=== PATIENT | male | born 1985 | race Two or more races ===

== ENCOUNTER 2018-12-06 00:46 | Emergency (ER) | payer SELFPAY ==
[~2018-12-06] VITALS: Ht 188 cm; Wt 98.4 kg
[2018-12-06] MEDS ORDERED: IBUPROFEN 800 MG TABLET PO ONE (01:00)
[2018-12-06] MEDS ORDERED: IBUPROFEN 800 MG TABLET ONE (01:09)
--- NOTE | 2018-12-06 01:09 | NUR ---
Pt. ambulated into ED accompanied by male orthodontic laboratory technician w/ c/o L foot pain d/t soccer injury that occurred 7 days ago, CMS intact, pt. not wearing shoes, A/Ox4, RR even and unlabored, speaks in clear and complete sentences,
--- NOTE | 2018-12-06 01:10 | NUR ---
Xray at bedside.
--- NOTE | 2018-12-06 01:10 | NUR ---
Rad. tech. called for xray,
--- NOTE | 2018-12-06 01:54 | NUR ---
Patient discharged to home in stable conditon. Written and verbal after care instructions given. Patient verbalizes understanding of instructions. Pt out of ER with crutches, gait training provided, no falls noted, VSS, no acute signs of distress, all belongings taken.
[2018-12-06 01:56] VITALS: BP 119/86
== END 2018-12-06 01:56 | disposition home or self-care (01) ==
LOC: ER 00:58
DX: S92.902A Unspecified fracture of left foot, initial encounter for closed fracture (principal); X50.0XXA Overexertion from strenuous movement or load, initial encounter; Y93.89 Activity, other specified; Y92.89 Other specified places as the place of occurrence of the external cause; Y99.8 Other external cause status
CPT/HCPCS: 73630; A4663

== ENCOUNTER 2023-06-26 04:14 | Emergency (ER) | payer SELFPAY ==
[~2023-06-26] VITALS: Ht 188 cm; Wt 93.0 kg
[2023-06-26 05:11] LABS: BASOPHILS % (AUTO) 0.4 % (0.0-2.0); EOSINOPHILS # (AUTO) 0.2 K/uL (0.0-0.7); EOSINOPHILS % (AUTO) 2.5 % (0.0-7.0); HEMATOCRIT 40.9 % (36.7-47.1); HEMOGLOBIN 14.7 g/dL (12.5-16.3); LYMPHOCYTES # (AUTO) 2.2 K/uL (0.8-4.8); LYMPHOCYTES % (AUTO) 25.4 % (20.5-51.5); MEAN CORPUSCULAR HEMOGLOBIN 29.9 uug (23.8-33.4); MEAN CORPUSCULAR HGB CONC 36 g/dL (32.5-36.3); MEAN CORPUSCULAR VOLUME 83.3 fL (73.0-96.2); MONOCYTES # (AUTO) 0.7 K/uL (0.1-1.30); MONOCYTES % (AUTO) 8.4 % (0.0-11.0); NEUTROPHILS # (AUTO) 5.5 K/uL (1.8-8.9); NEUTROPHILS % (AUTO) 63.3 % (38.5-71.5); PLATELET COUNT (AUTO) 263 K/uL (152-348); RED BLOOD CELL COUNT(AUTO) 4.91 MIL/uL (4.06-5.63); WHITE BLOOD COUNT (AUTO) 8.7 K/uL (3.6-10.2)
[2023-06-26 05:15] VITALS: O2SAT 98
[2023-06-26] MEDS ORDERED: IBUP-1957 PO (05:16)
[2023-06-26 05:17] LABS: DIFFERENTIAL COMMENT 1
[2023-06-26 05:22] LABS: CALCIUM 8.8 mg/dL (8.5-10.1); CARBON DIOXIDE 27 mmol/L (21-32); CHLORIDE 106 mmol/L (98-107); CREATININE 0.8 mg/dL (0.6-1.3); GLUCOSE 95 mg/dL (74-106); SODIUM SERUM 141 mmol/L (136-145); UREA NITROGEN, BLOOD 15 mg/dL (7-18)
[2023-06-26 05:35] LABS: ALANINE AMINOTRANSFERASE 55 U/L (16-63); ALBUMIN 3.9 g/dL (3.4-5.0); ALKALINE PHOSPHATASE 69 U/L (50-136); ASPARTATE AMINOTRANSFERASE 18 U/L (15-37); BILIRUBIN,DIRECT 0.1 mg/dL (0.0-0.2); BILIRUBIN,TOTAL 0.4 mg/dL (0.2-1.0); NT-PRO BNP 19 pg/mL (0-125); TOTAL PROTEIN, SERUM 6.7 g/dL (6.4-8.2)
[2023-06-26] MEDS ORDERED: CLONIDINE HCL 0.2 MG TABLET ONE (05:39)
[2023-06-26] MEDS: CLONIDINE HCL 0.2 MG TABLET PO ONE (05:45)
[2023-06-26 05:59] VITALS: BP 161/100
== END 2023-06-26 06:00 | disposition home or self-care (01) ==
LOC: ER 04:16
DX: M13.831 Other specified arthritis, right wrist (principal); R03.0 Elevated blood-pressure reading, without diagnosis of hypertension; R00.2 Palpitations; Z79.899 Other long term (current) drug therapy; Z60.2 Problems related to living alone
CPT/HCPCS: 36415; 71045; 73110; 84484; 85025; 85730; 93005; A4606; A4663